=== PATIENT | female | born 1975 | race Two or more races ===

== ENCOUNTER 2024-07-10 17:25 | Emergency (ER) | payer MEDICAID, OTHER ==
[~2024-07-10] VITALS: Ht 162.6 cm; Wt 67.9 kg
[2024-07-10 17:36] VITALS: BP 173/103; PULSE 86; RESP 18; O2SAT 99
[2024-07-10] MEDS ORDERED: MORPHINE SULFATE 4 MG/ML SYR/VIAL IV ONE (17:45)
[2024-07-10] MEDS ORDERED: ONDANSETRON HCL 4 MG/2 ML VIAL IV ONE (17:45)
[2024-07-10] MEDS ORDERED: SODIUM CHLORIDE 0.9% 1,000 ML IVB ONE (17:45)
[2024-07-10] MEDS ORDERED: PANTOPRAZOLE 40 MG/10 ML VIAL INJ IV ONE (17:45)
[2024-07-10] MEDS ORDERED: cloNIDine HCL 0.1 MG TAB PO ONE (18:00)
[2024-07-10 18:34] LABS: Urine Bacteria None Seen /hpf (None Seen)
[2024-07-10 19:01] LABS: Urine Blood Negative /uL (Negative); Urine Clarity Turbid (Clear); Urine Color Yellow (Yellow); Urine Hyaline Cast FEW /lpf (0 - 2); Urine Mucus FEW (None Seen); Urine Protein, UAD 1+ (Negative); Urine Specific Gravity 1.032 (1.001-1.035); Urine Urobilinogen Normal (Negative); Urine WBC 4 /hpf (0 - 5); Urine pH 5.5 (5.0-9.0)
== END 2024-07-10 19:31 | disposition home or self-care (01) ==
LOC: EEVIPCON 17:25 → ER 17:25
DX: R10.13 Epigastric pain (principal); F41.9 Anxiety disorder, unspecified; I10 Essential (primary) hypertension; F17.210 Nicotine dependence, cigarettes, uncomplicated; Z86.73 Personal history of transient ischemic attack (TIA), and cerebral infarction without residual deficits
CPT/HCPCS: 81001